=== PATIENT | female | born 1985 | race Caucasian/White ===

== ENCOUNTER 2020-07-18 10:32 | Emergency (ER) | payer OTHER ==
[~2020-07-18] VITALS: Ht 157.5 cm; Wt 78.5 kg
--- NOTE | 2020-07-18 10:38 | NUR ---
ARRIVAL PT ARRIVED TO ED WITH C/O FALLING ON THE ICE WHILE CHASING HER DOG. PT REPORTS SHE HIT HER HEAD ON THE CONCRETE. PT REPORTS NECK STIFFNESS AND PAIN TO RIGHT HAND,WRIST,ELBOW AND HIP AND BACK PAIN. TENDERNESS TO BACK WITH LIGHT PALPATION. PEARLA. NO LOC DURING FALL. PT PLACED IN C COLLAR UPON ARRIVAL TO ER ROOM. BEDSIDE MONITORS APPLIED. VITAL SIGNS STABLE. 20G IV PLACED TO LEFT FOREARM. SPOUSE AT BEDSIDE.
[2020-07-18 10:55] VITALS: BP 120/75
[2020-07-18 11:05] VITALS: BP_SYST 120
--- NOTE | 2020-07-18 11:16 | ER.PDOC ---
General Chief Complaint: Trauma Stated Complaint: FALL/HEAD INJURY,RIGHT HAND &WRIST INJURY Time seen by MD: 11:14 Source: patient Exam Limitations: no limitations History of Present Illness Initial Comments slip and fall on ice today. head neck low back and rue pain. Occurred: just prior to arrival Where: street Severity: moderate Injuries/Pain Location: head, neck, back Context: Slipped Loss of Consciousness: No Loss of Consciousness Allergies: Coded Allergies: azithromycin (Verified Allergy, Unknown, 07/18/20) cephalexin (Verified Allergy, Unknown, 07/18/20) Past Medical History Medical History: diabetes Surgical History: cholecystectomy, hysterectomy, other Social History Alcohol Use: none Drug Use: none Review of Systems Constitutional: denies chills, denies fever Eyes: denies pain Ears, Nose, Mouth, Throat: denies nose pain Respiratory: denies cough, denies shortness of breath Cardiovascular: denies chest pain, denies palpitations, denies syncope Gastrointestinal: denies abdominal pain Genitourinary: denies pain Musculoskeletal: neck pain Skin: denies rash Psychiatric/Neurological: headache Physical Exam General Appearance: No Apparent Distress, WD/WN Head: No Evidence of Injury Eyes: bilateral eye normal inspection, bilateral eye PERRL, bilateral eye EOMI Ears, Nose, Mouth, Throat: Hearing Grossly Normal, No Evidence of ENT Injury Neck: Tenderness Cardiovascular/Respiratory: Regular Rate, Rhythm Gastrointestinal: Non Tender Back: Vertebral Tenderness Extremities: Tenderness 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 [place] Coma Score Best Eye Response: (4) Open Spontaneously Best Verbal Response: (5) Oriented Best Motor Response: (6) Obeys Commands Results/Orders Results/Orders Orders - JIA NEELY MD Ct Head Wo Contrast (07/18/20 11:04) Ct Cervical Spine (07/18/20 11:04) Xr Lspine 2-3v (07/18/20 11:04) Xr Femur Rt (07/18/20 11:04) Xr Forearm Rt (07/18/20 11:04) Xr Hand Rt (07/18/20 11:04) Xr Humerus Rt (07/18/20 11:04) Morphine Sulfate (Morphine Sulfate) (07/18/20 11:30) Morphine Sulfate (Morphine Sulfate) (07/18/20 11:58) Vital Signs Date Time Temp Pulse Resp B/P (MAP) Pulse Ox O2 Delivery O2 Flow Rate FiO2 07/18/20 11:05 14 07/18/20 10:55 97.6 90 14 07/18/20 10:55 97.6 90 14 120/75 (90) 98 Room Air 07/18/20 10:55 97.6 90 14 98 Administered Medications Medications (Trade) Dose Ordered Sig/Raúl Route PRN Reason Start Time Stop Time Status Last Admin Dose Admin Morphine Sulfate (Morphine Sulfate) 2 mg STAT ONCE IV 07/18/20 11:30 07/18/20 11:31 DC 07/18/20 11:58 2 MG ER DEPART Departure Time of Disposition: 12:04 Disposition: 01 HOME, SELF-CARE Impression: Primary Impression: Head injury Additional Impressions: Cervical strain Back pain Arm pain Elbow fracture Condition: Stable Patient Instructions: Back Pain, Adult, Cervical Strain and Sprain with Rehab- SportsMed, Elbow Fracture, Simple, Head Injury, Adult Referrals: PCP,UNKNOWN (PCP) PRIMARY CARE PROVIDER JIA SANCHEZ MD, GIANG T MD Additional Instructions: return for any worsening symptoms, if pain does not improve see doctor for further evaluation and imaging. Duration or Time Spent with Pa: 15 Problem Qualifiers JIA NEELY MD Jul 18, 2020 11:16
[2020-07-18] MEDS ORDERED: MORPHINE SULFATE IV ONE (11:30)
--- NOTE | 2020-07-18 11:47 | DIREP ---
PROCEDURE:CT HEAD WITHOUT CONTRAST TECHNIQUE:Axial cuts were obtained through the head, without intravenous contrast material. The images were viewed at brain and bone settings. COMPARISON:None. INDICATIONS:fall and pain FINDINGS: VENTRICLES:Normal. CEREBRUM:Normal. No hemorrhage. CEREBELLUM:Normal. BRAINSTEM:Normal. SKULL:Normal. SINUSES:Normal. OTHER:Negative. CONCLUSION:Normal CT of the head. Dictated by: Sumanth Clark M.D. on 07/18/2020 at 11:44 AM
--- NOTE | 2020-07-18 11:56 | DIREP ---
PROCEDURE: CT SPINE CERVICAL W/O COMPARISON:None. INDICATIONS:fall and pain FINDINGS: ALIGNMENT:Mild straightening of cervical lordosis which may be positional. VERTEBRAE:No fractures. PARASPINAL AREA:Small calcification lower pole of the right lobe of the thyroid gland. OTHER:No additional findings. CERVICAL DISC LEVELS C2-C3:Normal. C3-C4:Normal. C4-C5:Normal. C5-C6:Normal. C6-C7:Normal. C7-T1:Normal. CONCLUSION:No fractures. Dictated by: Sumanth Clark M.D. on 07/18/2020 at 11:46 AM
[2020-07-18] MEDS ORDERED: MORPHINE SULFATE ONE (11:58)
--- NOTE | 2020-07-18 12:04 | DIREP ---
PROCEDURE:XRAY FOREARM 2 VWS-RT COMPARISON:None. INDICATIONS:fall and pain FINDINGS: BONES:Curvilinear density overlying the medial epicondyle. Please correlate with point tenderness to exclude acute injury. Otherwise no fracture seen. JOINTS:Normal. SOFT TISSUES:Normal. OTHER:No additional findings. CONCLUSION: 1. Curvilinear density overlying the medial epicondyle. Please correlate with point tenderness to exclude acute injury. Otherwise, no fracture seen. Dictated by: Lazaro Meade MD on 07/18/2020 at 11:59 AM
--- NOTE | 2020-07-18 12:05 | DIREP ---
PROCEDURE:L-SPINE 3 VIEWS TECHNIQUE:AP, lateral, and coned down lateral views of the lumbar spine are provided. COMPARISON:None. INDICATIONS:fall and pain FINDINGS: ALIGNMENT:Normal. VERTEBRAE:Normal. DISK SPACES:Normal. SACROILIAC JOINTS:Normal. OTHER:Surgical clips right upper quadrant of the abdomen and upper mid pelvis. CONCLUSION:Normal lumbar spine. No fractures. Dictated by: Sumanth Clark M.D. on 07/18/2020 at 12:01 PM
--- NOTE | 2020-07-18 12:07 | DIREP ---
PROCEDURE:XRAY FEMUR 2 VWS-RT COMPARISON:None. INDICATIONS:fall and pain FINDINGS: BONES:Normal. No fractures. JOINTS:Normal. SOFT TISSUES:Normal. OTHER:No additional findings. CONCLUSION:Normal right femur. Dictated by: Sumanth Clark M.D. on 07/18/2020 at 12:04 PM
--- NOTE | 2020-07-18 12:08 | DIREP ---
PROCEDURE:XRAY HUMERUS MIN 2 VWS-RT COMPARISON:None. INDICATIONS:fall and pain FINDINGS: BONES:Normal. JOINTS:Normal. SOFT TISSUES:Normal. OTHER:No additional findings. CONCLUSION:Normal right humerus. Dictated by: Sumanth Clark M.D. on 07/18/2020 at 12:06 PM
--- NOTE | 2020-07-18 12:16 | DIREP ---
PROCEDURE:XRAY HAND MIN 3 VW-RT COMPARISON:None. INDICATIONS:fall and pain FINDINGS: BONES:Normal. JOINTS:Normal. SOFT TISSUES:Normal. OTHER:No additional findings. CONCLUSION:Normal right hand. Dictated by: Sumanth Clark M.D. on 07/18/2020 at 12:07 PM
== END 2020-07-18 13:00 | disposition home or self-care (01) ==
LOC: ER 10:32
DX: S42.401A Unspecified fracture of lower end of right humerus, initial encounter for closed fracture (principal); S16.1XXA Strain of muscle, fascia and tendon at neck level, initial encounter; S09.90XA Unspecified injury of head, initial encounter; E11.9 Type 2 diabetes mellitus without complications; Z88.1 Allergy status to other antibiotic agents; Z90.49 Acquired absence of other specified parts of digestive tract; Z90.710 Acquired absence of both cervix and uterus; W00.0XXA Fall on same level due to ice and snow, initial encounter; Y93.89 Activity, other specified; Y92.488 Other paved roadways as the place of occurrence of the external cause; Y99.8 Other external cause status
CPT/HCPCS: 29105; 70450; 72100; 72125; 96374; 99285; 73060-RT; 73090-RT; 73130-RT; 73550-RT